=== PATIENT | male | born 1995 | race Caucasian/White ===

== ENCOUNTER 2020-09-03 20:20 | Emergency (ER) | payer OTHER, SELFPAY ==
[2020-09-03 21:44] VITALS: BP 157/85; PULSE 113; RESP 16; TEMP 36.7; O2SAT 98; BMI 53.2
--- NOTE | 2020-09-03 22:10 | XR_ITS ---
EXAMINATION: LUMBAR SPINE, SACRUM AND COCCYX CLINICAL INFORMATION: Fall with lower back and coccygeal pain COMPARISON: None TECHNIQUE: 3 views lumbosacral spine, 3 views sacrum and coccyx FINDINGS: The lumbar spine appears normal with disc spaces preserved. No fractures are seen. No bony destructive lesions are seen. No spondylolisthesis is present. The sacrum appears normal. No sacral fracture is seen. The coccyx appears unremarkable. XR/XR lumbar spine 2-3V IMPRESSION: Negative studies
--- NOTE | 2020-09-03 22:10 | XR_ITS ---
EXAMINATION: LUMBAR SPINE, SACRUM AND COCCYX CLINICAL INFORMATION: Fall with lower back and coccygeal pain COMPARISON: None TECHNIQUE: 3 views lumbosacral spine, 3 views sacrum and coccyx FINDINGS: The lumbar spine appears normal with disc spaces preserved. No fractures are seen. No bony destructive lesions are seen. No spondylolisthesis is present. The sacrum appears normal. No sacral fracture is seen. The coccyx appears unremarkable. XR/XR sacrum coccyx min 2V IMPRESSION: Negative studies
[2020-09-03] MEDS: Lidocaine HCl 1 % MPF 5 ML VIAL SUBCUT ×2 (23:03)
[2020-09-03] MEDS: cephALEXin 500 MG CAPSULE PO (23:04)
[2020-09-03] MEDS: Lidocaine 4 % Cream KIT 1 APPL TOPICAL (23:04)
--- NOTE | 2020-09-03 23:05 | ED_ITS ---
HPI - Skin/Abscess/Foreign Bdy General Chief complaint: Back Pain/Injury Stated complaint: back pain Time Seen by Provider: 09/03/20 22:10 Source: patient Mode of arrival: ambulatory Limitations: no limitations History of Present Illness HPI narrative: 25yoM c PMHx of HTN and sleep apnea presenting to the ED c c/o buttocks pain after a fall out of bed. Denies head injury or loss of consciousness or any other symptoms complaints or concerns at this time. Related Data Previous Rx's Medication Instructions Recorded cephalexin [Keflex] 500 mg PO Q6H 10 Days #40 cap 09/03/20 doxycycline monohydrate 100 mg PO BID 10 Days #20 cap 09/03/20 ibuprofen 800 mg PO Q8H PRN #14 tab 09/03/20 oxycodone-acetaminophen [Percocet] 1 tab PO Q6H PRN #14 tab 09/03/20 Allergies Allergy/AdvReac Type Severity Reaction Status Date / Time oxycodone [From PERCOCET] Allergy Unknown UNKNOWN Verified 09/03/20 22:54 Review of Systems Review of Systems: Musculoskeletal : No joint pain, No Myalgias, + Joint Swelling Skin : No Skin Lesions, No rash Neuro : No Weakness, No Numbness, No Paresthesias, No Loss of Consciousness, No Dizziness, No Headache, NO LOC Yes all other systems are reviewed and are neg ative [facility] Past Medical History Attestation statement: The following information was validated with the patient. Medical History HTN (hypertension) Sleep apnea Social History Social History Advance Directives: No Advance Directives Information Provided: Yes Physical Exam Vital Signs: Vital Signs: Last Vital Signs Temp 98.1 F 09/03/20 21:44 Pulse 113 H 09/03/20 21:44 Resp 16 09/03/20 21:44 BP 157/85 H 09/03/20 21:44 Pulse Ox 98 09/03/20 21:44 Body Mass Index 53.2 vital signs have been reviewed as normal and appeared to be correct. Blood pressure normal. Heart rate normal. Respiration rate normal. Temperature normal. Oxygen saturation normal. Appearance: Alert. Oriented X3. No acute distress. Head: Normal external exam. Normocephalic. Atraumatic. No Zheng signs noted. No raccoon eyes noted Eyes: PERRLA. EOMI. Conjunctiva and sclera normal. Eyelids normal. ENT: EAC normal. TM's Normal. Pharynx normal. Uvula midline. Moist mucous membranes. Neck: Normal inspection. Neck supple. FROM. No adenopathy. Thyroid Normal. No meningeal signs. CVS: Normal heart rate and rhythm. Heart sound normal. No murmurs noted. Pulses normal throughout. Respiratory: No respiratory distress. Painless inspiration. Breath sounds normal. Back: Full range of motion noted. Skin: Abscess to pilondial aspect c moderate surrounding erythema. No streaking noted. Skin warm and dry. Normal skin color. Normal skin turgor. No rashes/lesions/lacerations noted. Extremities: No lower extremity edema. Extremities exhibit normal range of motion. Extremities nontender. Neuro: Oriented X 3. No motor deficit. No sensory deficit. Reflexes normal. Procedures Abscess I/D Site: sarai-rectal Sedation/analgesia: other (4 mg of IM morphine) Local Anesthetic: lidocaine 1% Amount of anesthesia used (mL): 10 Technique: incised with blade Amount of fluid expressed (mL): 20 Sent for culture/gram staining?: No Irrigation: Yes Packing used?: none Complications: other (No complications) Discharge Plan Discharge Clinical Impression: Pilonidal abscess Patient Disposition: Home, Self-Care Instructions: Pilonidal Cyst (ED), Pilonidal Cyst Excision (DC) Prescriptions: New ibuprofen 800 mg tablet 800 mg PO Q8H PRN (Reason: pain) Qty: 14 RF: 0 oxycodone-acetaminophen [Percocet] 5-325 mg tablet 1 tab PO Q6H PRN (Reason: pain) Qty: 14 RF: 0 doxycycline monohydrate 100 mg capsule 100 mg PO BID 10 Days Qty: 20 RF: 0 cephalexin [Keflex] 500 mg capsule 500 mg PO Q6H 10 Days Qty: 40 RF: 0 Referrals: Ambrosio Yu MD [Physician] - 2 days (pilondial cyst ) Stand Alone Forms: Work/School Release Print Language: Croatian
[2020-09-03] MEDS: Morphine Sulfate 4 MG/ML CARTRIDGE IM (23:16)
--- NOTE | 2020-09-03 23:34 | PC.NURSE ---
provider at bedside to perform wound treatment.
[2020-09-04] MEDS: Lidocaine HCl 1 % 20 ML VIAL SUBCUT (00:33)
== END 2020-09-04 00:38 | disposition home or self-care (01) ==
PROVIDERS: Emergency Provider Internal Medicine
DX: L05.01 Pilonidal cyst with abscess (principal); M54.5 Low back pain; M54.6 Pain in thoracic spine; Z79.899 Other long term (current) drug therapy
CPT/HCPCS: 10080; 72100; 72220; 96372; 99283; 99284; J2270

== ENCOUNTER → 2020-09-22 13:16 | Outpatient (BNVA) | payer OTHER, SELFPAY | PROVIDERS: Referring Provider Internal Medicine; Visit Provider Surgery | DX: L05.91 Pilonidal cyst without abscess (principal); G47.30 Sleep apnea, unspecified | CPT/HCPCS: 99202 ==

== ENCOUNTER 2021-02-16 13:20 | Outpatient (REF) | payer OTHER, SELFPAY ==
[2021-02-17 05:22] LABS: HBS Num1 1.18 mIU/mL (0-7.99); HBc Num1 0.09 S/CO (0.00-0.79); Hepatitis B Core Antibody Nonreactive (Nonreactive); ~Hepatitis B Surface Antibody NONREACTIVE (Nonreactive)
[2021-02-17 05:40] LABS: HBsAGNum1 0.21 S/CO (0.00-0.99); Hepatitis B Surface Antigen Negative (Negative)
[2021-02-17 08:52] LABS: Rubella IgG Antibody 9.55 Index
[2021-02-18 20:36] LABS: TS Negative Control Passed; TS Panel A 0; TS Panel B 5; TS Positive Control Passed; TSpotTB BORDERLINE (SeeBelow)
== END 2021-02-16 13:21 | disposition home or self-care (01) ==
LOC: HO.LAB 13:20
PROVIDERS: Visit Provider Internal Medicine
DX: Z01.84 Encounter for antibody response examination (principal); R76.11 Nonspecific reaction to tuberculin skin test without active tuberculosis
CPT/HCPCS: 36415; 86481; 86704; 86706; 86735; 86762; 86765; 86787; 87340

== ENCOUNTER 2022-11-08 10:19 | Emergency (ER) | payer OTHER, SELFPAY ==
[2022-11-08 10:34] VITALS: BP 157/91; PULSE 99; RESP 18; TEMP 36.3; O2SAT 97; BMI 46.3
--- NOTE | 2022-11-08 10:59 | ED.SKABFB ---
HPI - Skin/Abscess/Foreign Bdy General Chief complaint: Skin/Abscess/Foreign Body Stated complaint: infection Time Seen by Provider: 11/08/22 10:55 History of Present Illness HPI narrative: Patient complains of recurrence of pilonidal abscess over past 2-3 days initially with pain and swelling in the area and now in addition there is pus draining from the wound, he denies any fever no difficulty with bowel or bladder no other painful areas He has had abscess in the same area and was advised to follow with the surgeon, but did not want to get the surgery at that time Related Data Previous Rx's Medication Instructions Recorded cephalexin 500 mg capsule (Keflex) 500 mg PO Q6H 10 days #40 caps 09/03/20 doxycycline monohydrate 100 mg 100 mg PO BID 10 days #20 caps 09/03/20 capsule ibuprofen 800 mg tablet 800 mg PO Q8H PRN pain #14 tabs 09/03/20 oxycodone-acetaminophen 5 mg-325 1 tab PO Q6H PRN pain #14 tabs 09/03/20 mg tablet (Percocet) doxycycline hyclate 100 mg capsule 100 mg PO BID 7 days #14 caps 11/08/22 ibuprofen 600 mg tablet 600 mg PO Q6H PRN pain #20 tabs 11/08/22 oxycodone 5 mg tablet 5 mg PO Q6H PRN pain #14 tabs 11/08/22 Allergies Allergy/AdvReac Type Severity Reaction Status Date / Time acetaminophen [From Percocet] Allergy Unknown Verified 11/08/22 10:39 oxycodone [From Percocet] Allergy Unknown Verified 11/08/22 10:39 Review of Systems Review of Systems: No fever no abdominal pain no trouble with bowel or bladder Yes all other systems are reviewed and are negative PMFSH Past Medical History PMFSH Narrative: Patient has history of pilonidal abscess, was advised to get a surgery but did not want to do it out of fear of anesthesia as he has sleep apnea, as well he is anxious about needles Medical History HTN (hypertension) Morbid obesity Sacrococcygeal pilonidal cyst Sleep apnea Social History Social History Alcohol intake: current Alcohol intake frequency: a few times a month Smoked in Last 30 Days: No Substance Use Type: Marijuana Advance Directives: No Advance Directives Information Provided: No Physical Exam Vital Signs: Vital Signs: Last Vital Signs Temp 99.1 F 11/08/22 11:45 Pulse 102 H 11/08/22 11:45 Resp 16 11/08/22 11:45 BP 150/92 H 11/08/22 11:45 Pulse Ox 98 11/08/22 11:45 O2 Del Method 11/08/22 11:45 BMI result Body Mass Index 46.3 General appearance anxious appearing but no acute distress Head is normocephalic atraumatic Neck is supple Respiratory no distress Abdomen soft nontender Skin exam there is an area of redness fluctuance induration and tenderness in the pilonidal area, there are 2 small swollen areas the 1st 1 is right above the gluteal cleft on the right side and it is draining pus through a pinhole 2 cm below is a fluctuant indurated quarter-sized area very tender to the touch There is no surrounding erythema Extremities full range of motion x4 Course Course Course Narrative: Patient was very anxious and was given Ativan with some relief of his anxiety to where he was able to tolerate and cooperate with the procedure The pilonidal area was cleansed with Betadine Anesthesia was 12 cc of 1% lidocaine as well as 6 cc of 1% lidocaine with epi Two incisions were made 1 in the area at the pilonidal cleft which was draining some pus and the other 2 cm below in a quarter-sized fluctuant area Both were probed with forceps, pus and blood were discharged and packing was placed in both The procedure was very painful and to complete it I had to give a 2nd administration of 6 cc of 1% lidocaine with epi which is mentioned above Medications Administered Discontinued Medications Generic Name Dose Route Start Last Admin Trade Name Freq PRN Reason Stop Dose Admin Doxycycline Monohydrate 100 mg 11/08/22 13:11 11/08/22 13:33 Doxycycline Monohydrate 100 Mg Capsule PO 11/08/22 13:12 100 mg ONCE ONE Administration Ibuprofen 600 mg 11/08/22 11:00 11/08/22 11:19 Ibuprofen 600 Mg Tablet PO 11/08/22 11:01 600 mg ONCE ONE Administration Lidocaine HCl 2 ml 11/08/22 11:00 11/08/22 11:20 Lidocaine Hcl 1 % Mpf 2 Ml Vial INFILTRATI 11/08/22 11:01 2 ml ONCE ONE Administration Lidocaine HCl 2 ml 11/08/22 11:00 11/08/22 11:20 Lidocaine Hcl 1 % Mpf 2 Ml Vial INFILTRATI 11/08/22 11:01 2 ml ONCE ONE Administration Lidocaine HCl 2 ml 11/08/22 11:00 11/08/22 11:20 Lidocaine Hcl 1 % Mpf 2 Ml Vial INFILTRATI 11/08/22 11:01 2 ml ONCE ONE Administration Lidocaine HCl 2 ml 11/08/22 11:00 11/08/22 11:20 Lidocaine Hcl 1 % Mpf 2 Ml Vial INFILTRATI 11/08/22 11:01 2 ml ONCE ONE Administration Lidocaine HCl 2 ml 11/08/22 11:00 11/08/22 11:20 Lidocaine Hcl 1 % Mpf 2 Ml Vial INFILTRATI 11/08/22 11:01 2 ml ONCE ONE Administration Lidocaine HCl 2 ml 11/08/22 11:00 11/08/22 11:21 Lidocaine Hcl 1 % Mpf 2 Ml Vial INFILTRATI 11/08/22 11:01 2 ml ONCE ONE Administration Lidocaine HCl 2 ml 11/08/22 12:39 11/08/22 13:23 Lidocaine Hcl 1 % Mpf 2 Ml Vial INFILTRATI 11/08/22 12:40 2 ml ONCE ONE Administration Lidocaine HCl 2 ml 11/08/22 12:39 11/08/22 13:23 Lidocaine Hcl 1 % Mpf 2 Ml Vial INFILTRATI 11/08/22 12:40 2 ml ONCE ONE Administration Lidocaine/Epinephrine 30 ml 11/08/22 12:52 11/08/22 13:26 Lidocaine Hcl 1%/Epi 1:100,000 30 Ml Vial SUBCUT 11/08/22 12:53 Not Given ONCE ONE Lidocaine/Epinephrine 6 ml 11/08/22 13:00 11/08/22 13:24 Lidocaine Hcl 1% Pf/Epi 1:200,000 30 Ml Vial INFILTRATI 11/08/22 13:01 6 ml ONCE ONE Administration Lorazepam 1 mg 11/08/22 11:00 11/08/22 11:18 Lorazepam 1 Mg Tablet PO 11/08/22 11:01 1 mg ONCE ONE Administration Lorazepam 1 mg 11/08/22 11:52 11/08/22 12:00 Lorazepam 1 Mg Tablet PO 11/08/22 11:53 1 mg ONCE ONE Administration Oxycodone HCl 5 mg 11/08/22 11:00 11/08/22 11:19 Oxycodone Hcl Immed Release 5 Mg Tablet PO 11/08/22 11:01 5 mg ONCE ONE Administration Oxycodone HCl 5 mg 11/08/22 13:22 11/08/22 13:33 Oxycodone Hcl Immed Release 5 Mg Tablet PO 11/08/22 13:23 5 mg ONCE ONE Administration Discharge Plan Discharge Clinical Impression: Pilonidal abscess Patient Disposition: Home, Self-Care Additional Instructions: Return to the ER in 2 days for packing removal and wound check Return any time for spreading redness, worse pain and swelling, uncontrolled pain, any worse condition or any concerns This problem tends to happen over and over so consult with surgeon to see if there is a procedure to prevent this from happening again Prescriptions: New doxycycline hyclate 100 mg capsule 100 mg PO BID 7 Days Qty: 14 0RF ibuprofen 600 mg tablet 600 mg PO Q6H PRN (Reason: pain) Qty: 20 0RF oxycodone 5 mg tablet 5 mg PO Q6H PRN (Reason: pain) Qty: 14 0RF Rx Instructions: Partial Fill upon patient request. No Action ibuprofen 800 mg tablet 800 mg PO Q8H PRN (Reason: pain) Qty: 14 0RF Label Comments: will stop 1 week before surgery oxycodone-acetaminophen [Percocet] 5-325 mg tablet 1 tab PO Q6H PRN (Reason: pain) Qty: 14 0RF doxycycline monohydrate 100 mg capsule 100 mg PO BID 10 Days Qty: 20 0RF Rx Instructions: patient finished prescription . Will call Dr Oleary to see if he want his to continue cephalexin [Keflex] 500 mg capsule 500 mg PO Q6H 10 Days Qty: 40 0RF Label Comments: patient ran out to call Dr Yu to ask if he should continue. Referrals: Ambrosio Yu MD [Physician] - (Recurrent pilonidal abscess) Stand Alone Forms: Work/School Release Interventions: ED Discharge Assessment Last Done: 11/08/22 13:45 Discharge Date/Time: 11/08/22 13:46
[2022-11-08] MEDS: LORazepam 1 MG TABLET PO ×2 (11:18→12:00)
[2022-11-08] MEDS: oxyCODONE HCl Immed Release 5 MG TABLET PO ×2 (11:19→13:33)
[2022-11-08] MEDS: Ibuprofen 600 MG TABLET PO (11:19)
[2022-11-08] MEDS: Lidocaine HCl 1 % MPF 2 ML VIAL INFILTRATI ×8 (11:20→13:23)
--- NOTE | 2022-11-08 11:22 | PC.NURSE ---
patient a/ox4 . chris . heart rate regular at 98 beats per minute . breathing even and unlabored . skin pink and dry , abscess located above coccyx ,draining small amount purulent drainage . patient reports pain level of 8 out of 10 . patent medicated as ordered by provider . patient aware of plan of care .
[2022-11-08 11:45] VITALS: BP 150/92; PULSE 102; RESP 16; TEMP 37.3; O2SAT 98
[2022-11-08] MEDS: Lidocaine HCl 1% PF/Epi 1:200,000 30 ML VIAL 6 ML INFILTRATI (13:24)
[2022-11-08] MEDS: Doxycycline Monohydrate 100 MG CAPSULE PO (13:33)
--- NOTE | 2022-11-08 13:42 | PC.NURSE ---
patient a/ox4 . patient abscess covered with dressing prior to discharge . VSS . Went over discharge instructions as ordered by provider . patient to return to Ed if two days for dressing change . patient has no questions at this time .
== END 2022-11-08 13:46 | disposition home or self-care (01) ==
PROVIDERS: Emergency Provider Student in an Organized Health Care Education/Training Program; PCP Internal Medicine
DX: L05.91 Pilonidal cyst without abscess (principal); F41.1 Generalized anxiety disorder; F43.0 Acute stress reaction; Z79.899 Other long term (current) drug therapy
CPT/HCPCS: 10060; 99284

== ENCOUNTER 2022-11-10 09:44 | Emergency (ER) | payer OTHER, SELFPAY ==
[2022-11-10 09:49] VITALS: BP 157/86; PULSE 87; RESP 20; TEMP 36.1; O2SAT 97; BMI 47.6
--- NOTE | 2022-11-10 10:01 | ED.WOUNDLAC ---
HPI - Wound/Laceration General Chief Complaint: Wound/Laceration Stated Complaint: Packing Removal Time Seen by Provider: 11/10/22 10:00 Source: patient Mode of arrival: ambulatory Limitations: no limitations History of Present Illness HPI narrative: 27-year-old male presents to the ER for packing removal. He was seen here on November 08 and had a pilonidal abscess incised and drained. Packing was used in the wound and patient was discharged with antibiotics and pain medication. He presents back today for packing removal and re-evaluation of the wound. He reports ongoing drainage from the area and pain. He has been compliant with the antibiotics. No fevers at home. He has been washing the area as able. Onset (ago): day(s) Patient tetanus UTD: Yes Associated symptoms: pain Related Data Previous Rx's Medication Instructions Recorded cephalexin 500 mg capsule (Keflex) 500 mg PO Q6H 10 days #40 caps 09/03/20 doxycycline monohydrate 100 mg 100 mg PO BID 10 days #20 caps 09/03/20 capsule ibuprofen 800 mg tablet 800 mg PO Q8H PRN pain #14 tabs 09/03/20 oxycodone-acetaminophen 5 mg-325 1 tab PO Q6H PRN pain #14 tabs 09/03/20 mg tablet (Percocet) doxycycline hyclate 100 mg capsule 100 mg PO BID 7 days #14 caps 11/08/22 ibuprofen 600 mg tablet 600 mg PO Q6H PRN pain #20 tabs 11/08/22 oxycodone 5 mg tablet 5 mg PO Q6H PRN pain #14 tabs 11/08/22 Allergies Allergy/AdvReac Type Severity Reaction Status Date / Time acetaminophen [From Percocet] Allergy Unknown Verified 11/08/22 10:39 oxycodone [From Percocet] Allergy Unknown Verified 11/08/22 10:39 Review of Systems Review of Systems: Yes all other systems are reviewed and are negative PMFSH Past Medical History Medical History HTN (hypertension) Morbid obesity Sacrococcygeal pilonidal cyst Sleep apnea Social History Social History Alcohol intake: current Alcohol intake frequency: a few times a month Substance Use Type: Marijuana Advance Directives: No Advance Directives Information Provided: No Physical Exam Vital Signs: Vital Signs: Last Vital Signs Temp 96.9 F 11/10/22 09:49 Pulse 87 11/10/22 09:49 Resp 20 11/10/22 09:49 BP 157/86 H 11/10/22 09:49 Pulse Ox 97 11/10/22 09:49 O2 Del Method 11/10/22 09:49 BMI result Body Mass Index 47.6 Appearance: Alert. Oriented X3. No acute distress. HEENT: normal inspection CVS: Normal heart rate and rhythm. Pulses normal. Respiratory: No respiratory distress. Skin: Skin warm and dry. Normal skin color. Normal skin turgor. No rashes. Back/buttocks: There are to healing abscesses at the gluteal cleft. No areas of fluctuance or purulent discharge. Granulation tissue present. Extremities: Normal inspection x4 Neuro: Oriented X 3. No motor deficit. No sensory deficit. Course Course Course Narrative: 27-year-old male with history of obesity and recurrent pilonidal cyst presents to the ER for evaluation of his pilonidal cysts that were incised and drained the other day. He is here for packing removal and reassessment. On re-evaluation patient's cysts appear to be healing appropriately. No purulent drainage. No areas of fluctuance. Wounds were repacked with iodoform gauze. Long tails were left so that patient can remove these at home. He was encouraged follow-up with General surgery for evaluation and possible excision. Stable for discharge home. Medical Decision Making Differential Diagnosis Differential Diagnoses: The differential diagnosis associated with the presentation includes Pilonidal cyst with abscess, worsening infection, less likely osteomyelitis External Record Review External record reviewed: Outpatient record Reviewed prior providers note and procedures Prescription Management I considered prescription management with: Antibiotic No need to add additional Keflex, appears to be healing well on doxycycline alone. Critical Care Time Critical Care Time Critical Care Time: No Discharge Plan Discharge Clinical Impression: Pilonidal cyst with abscess Patient Disposition: Home, Self-Care Instructions: Abscess Follow-up (ED), Pilonidal Cyst Excision (DC) Additional Instructions: In 2 days you can remove the packing that was placed today. Continue the previously prescribed antibiotics. Recommend follow up with General Surgery when you would like to discuss surgical treatment. Prescriptions: No Action ibuprofen 800 mg tablet 800 mg PO Q8H PRN (Reason: pain) Qty: 14 0RF Label Comments: will stop 1 week before surgery oxycodone-acetaminophen [Percocet] 5-325 mg tablet 1 tab PO Q6H PRN (Reason: pain) Qty: 14 0RF doxycycline monohydrate 100 mg capsule 100 mg PO BID 10 Days Qty: 20 0RF Rx Instructions: patient finished prescription . Will call Dr Oleary to see if he want his to continue cephalexin [Keflex] 500 mg capsule 500 mg PO Q6H 10 Days Qty: 40 0RF Label Comments: patient ran out to call Dr Yu to ask if he should continue. doxycycline hyclate 100 mg capsule 100 mg PO BID 7 Days Qty: 14 0RF ibuprofen 600 mg tablet 600 mg PO Q6H PRN (Reason: pain) Qty: 20 0RF oxycodone 5 mg tablet 5 mg PO Q6H PRN (Reason: pain) Qty: 14 0RF Rx Instructions: Partial Fill upon patient request. Referrals: [facility] General Surgeons [Provider Group] (recurrent pilonidal cyst w/ abscess)
== END 2022-11-10 10:52 | disposition home or self-care (01) ==
PROVIDERS: Emergency Provider Emergency Medicine; PCP Internal Medicine
DX: L05.01 Pilonidal cyst with abscess (principal)
CPT/HCPCS: 99282; 99283